=== PATIENT | female | born 1995 | race Caucasian/White ===

== ENCOUNTER 2024-10-19 15:36 | Emergency (ER) | payer BC ==
[2024-10-19] MEDS: Take Home: Cyclobenzaprine 10 MG Tab, 4 Tab Pack PO ONE (17:11)
[2024-10-19] MEDS: Ketorolac 30 MG/ML SDV IM ONE (17:11)
== END 2024-10-19 17:25 | disposition home or self-care (01) ==
LOC: DL.ED 15:36
DX: M54.40 Lumbago with sciatica, unspecified side (principal)
CPT/HCPCS: 96372; 99283; A9270; J1885